=== PATIENT | male | born 1975 | race Two or more races ===

== ENCOUNTER 2024-06-11 17:24 | Emergency (ER) | payer SELFPAY ==
[~2024-06-11] VITALS: Ht 180.3 cm; Wt 82.9 kg
[2024-06-11 17:55] VITALS: BP 119/77; PULSE 104; RESP 18; O2SAT 96
[2024-06-11 18:39] LABS: Urine Bacteria None Seen /hpf (None Seen)
[2024-06-11 19:06] LABS: Urine Blood Negative /uL (Negative); Urine Clarity Clear (Clear); Urine Color Yellow (Yellow); Urine Mucus FEW (None Seen); Urine Protein, UAD Negative (Negative); Urine Specific Gravity 1.021 (1.001-1.035); Urine Urobilinogen Normal (Negative); Urine WBC <1 /hpf (0 - 3); Urine pH 5.5 (5.0-9.0)
[2024-06-11 19:35] LABS: Basophils # (auto) 0 10 ^3/uL (0-0.2); Basophils % (auto) 0.1 % (0.0-2.0); Eosinophils # (auto) 0 10 ^3/uL (0-0.8); Eosinophils % (auto) 0.1 % (0.0-7.0); Hematocrit 43.4 % (41.0-53.0); Hemoglobin 14.5 g/dL (13.5-17.5); Lymphocytes # (auto) 0.3 10 ^3/uL (0.4-5.4); Lymphocytes % (auto) 2.6 % (10.0-50.0); Mean Corpuscular Hemoglobin 29.5 pg (28.0-32.0); Mean Corpuscular Hgb Conc. 33.5 g/dL (32.0-36.0); Mean Corpuscular Volume 88.1 fL (80.0-100.0); Monocytes # (auto) 0.1 10 ^3/uL (0-1.3); Monocytes % (auto) 0.5 % (0.0-12.0); Neutrophils # (auto) 11.2 10 ^3/uL (1.6-8.6); Neutrophils % (auto) 96.7 % (37.0-80.0); Platelet Count (auto) 248 10^3/uL (140-450); Red Blood Cells 4.92 10^6/uL (4.5-5.90); Red Cell Distribution Width 13.8 % (11.8-14.3); White Blood Cell 11.6 10^3/uL (4.4-10.8)
[2024-06-11 20:16] LABS: Alanine Aminotransferase 26 U/L (7-40); Alkaline Phosphatase 66 U/L (46-116); Anion Gap 5 (5-15); Aspartate Aminotransferase 20 U/L (13-40); BUN/Creatinine Ratio 17.3 (10.0-20.0); Blood Urea Nitrogen 18 mg/dL (9-23); Carbon Dioxide 29 mmol/L (20-30); Chloride 105 mmol/L (98-107); Glucose 112 mg/dL (74-106); Lipase 32 U/L (12-53); Potassium 3.7 mmol/L (3.5-5.1); Sodium 139 mmol/L (136-145)
[2024-06-11 20:17] LABS: Total Protein 6.8 g/dL (5.7-8.2)
[2024-06-11 21:46] LABS: Albumin 4.2 g/dL (3.2-4.8)
[2024-06-12] MEDS ORDERED: PANT40TA2 PO (00:29)
== END 2024-06-12 01:07 | disposition home or self-care (01) ==
LOC: ER 17:24
DX: K29.70 Gastritis, unspecified, without bleeding (principal)
CPT/HCPCS: 36415; 74176; 76705; 80053; 81001; 83690; 85025